=== PATIENT | male | born 1965 | race Caucasian/White ===

== ENCOUNTER 2020-08-01 20:31 | Emergency (ER) | payer OTHER ==
[~2020-08-01 20:31] MED LIST: MOBIC15 MG PO; TYLENOL500 MG PO; XARELTO10 MG PO
[2020-08-01] MEDS ORDERED: HYDROCODON-ACE1 EAC2 PO (22:44)
== END 2020-08-01 23:00 | disposition home or self-care (01) ==
LOC: FER 20:31
DX: S92.001A Unspecified fracture of right calcaneus, initial encounter for closed fracture (principal); R07.89 Other chest pain; M54.9 Dorsalgia, unspecified; F17.200 Nicotine dependence, unspecified, uncomplicated; Z86.73 Personal history of transient ischemic attack (TIA), and cerebral infarction without residual deficits; W00.0XXA Fall on same level due to ice and snow, initial encounter; Y92.009 Unspecified place in unspecified non-institutional (private) residence as the place of occurrence of the external cause
CPT/HCPCS: 71101; 73630; J1885

== ENCOUNTER → 2021-02-25 | Day surgery (SDC) | payer OTHER ==
[~2021-02-25] VITALS: Ht 185.4 cm; Wt 81.9 kg
[~2021-02-25] MED LIST changes: +ASPIRIN325 MG PO; +ATORVASTATIN CA40 MG PO; +HYDROCODON-ACE1 EAC2 PO; +NAPROXEN500 MG PO; +OMEPRAZOLE40 MG PO; +VALPROIC ACID250 MG PO; +VITAMIN D21250 MCG PO
== END | disposition home or self-care (01) ==
LOC: FAS 09:11
DX: M24.611 Ankylosis, right shoulder (principal); M75.01 Adhesive capsulitis of right shoulder; G89.18 Other acute postprocedural pain; K21.9 Gastro-esophageal reflux disease without esophagitis; E78.5 Hyperlipidemia, unspecified; F17.210 Nicotine dependence, cigarettes, uncomplicated; Z86.73 Personal history of transient ischemic attack (TIA), and cerebral infarction without residual deficits; Z79.82 Long term (current) use of aspirin; Z79.899 Other long term (current) drug therapy
CPT/HCPCS: 97161; 97530-GP; J1100; J2250; J2704; J2795; J3010; J7120

== ENCOUNTER → 2021-10-28 | Day surgery (SDC) | payer OTHER ==
[~2021-10-28] VITALS: Ht 185.4 cm; Wt 81.9 kg
[~2021-10-28] MED LIST changes: +ARICEPT 10MG TA10 MG PO; -ATORVASTATIN CA40 MG PO; +EZALLOR SPRINKL40 MG PO; +LAMICTAL100 MG PO; +LAMICTAL25 M1 PO; +NEURONTIN100 MG PO; +VITAMIN B6 PO
== END | disposition home or self-care (01) ==
LOC: FAS 09-09 14:30
DX: M24.612 Ankylosis, left shoulder (principal); M75.02 Adhesive capsulitis of left shoulder; S92.001D Unspecified fracture of right calcaneus, subsequent encounter for fracture with routine healing; G89.18 Other acute postprocedural pain; E78.00 Pure hypercholesterolemia, unspecified; K21.9 Gastro-esophageal reflux disease without esophagitis; Z79.82 Long term (current) use of aspirin; Z79.899 Other long term (current) drug therapy
CPT/HCPCS: 97161; 97530-GP; J1885; J2250; J2704; J2795; J7120

== ENCOUNTER 2022-02-02 16:43 | Emergency (ER) | payer MEDICARE, OTHER | END 2022-02-02 20:00 | disposition home or self-care (01) | LOC: FER 16:43 | DX: M79.671 Pain in right foot (principal); W18.30XA Fall on same level, unspecified, initial encounter; Z28.310 Unvaccinated for COVID-19 | CPT/HCPCS: 73630 ==